=== PATIENT | female | born 1965 | race Caucasian/White ===

== ENCOUNTER 2016-08-15 09:49 | Emergency (ER) | payer BC ==
[2016-08-15] MEDS ORDERED: NS 0.9% 1000 ML* 1,000 ML IV ONE (10:21)
[2016-08-15] MEDS ORDERED: Ketorolac INJ* 30 MG/ML 1 ML VIAL IV ONE (10:21)
[2016-08-15] MEDS ORDERED: Metoclopramide IV* 5 MG/ML 2 ML VIAL IV ONE (10:21)
[2016-08-15] MEDS ORDERED: diPHENhydraMINE IV* 50 MG/ML 1 ml VIAL (BENADRYL) IV ONE (10:21)
[2016-08-15] MEDS ORDERED: Dihydroergotamine (D.H.E.)* 1 MG/ML 1 ML AMP IV ONE (10:21)
--- NOTE | 2016-08-15 10:21 | ED ---
Headache - HPI Summary HPI Summary: 50 female presents with complaints of a migraine that has been ongoing for 2 days. Patient has chronic migraines that she takes both prophylactic and rescue medications for. However after taking both she has not had any relief. Has not taken any today. States when this happens and her rescue medications do not help her she does have to come in and typically get IV medications for them to resolve. Patient is here visiting from [place] for a family reunion. She denies any other pain or complaints at this time. She has no PMHx. Tried taking topamax, half a percocet and trexamate x2 yesterday along with marijuana. Denies visual changes and aura. Describes migraine as unilateral right side and throbbing. Denies vomiting but admits to nausea. No recent head trauma or injury. States it is not the worst headache of her life and feels very typical for her. No changes in mental status. Noise and light make pain worse. Denies neck pain, fever and decreased LOC. Would like to break her migraine headache. - History Of Current Complaint Chief Complaint: EDHeadache Stated Complaint: MIGRAINE Time Seen by Provider: 08/15/16 10:12 Hx Obtained From: Patient, Family/Supervisor [employer]illing [employer] P[employer] - Onset/Duration: Sudden Onset, Started days ago - 1-2, Still Present Initially Headache Was: Initial Pain Scale(0-10)= - 6 Currently Pain Is: Current Pain Scale(0-10)= - 7 Timing: Constant Character: Throbbing, Migraine Location of Headache: Parietal - right side, Occipital - right side Aggravating Factor: Bright Lights - noise Allevating Factors: Nothing Associated Signs And Symptoms: Nausea - Allergies/Home Medications Allergies/Adverse Reactions: Allergies Allergy/AdvReac Type Severity Reaction Status Date / Time No Known Allergies Allergy Verified 08/15/16 09:55 PMH/Surg Hx/FS Hx/Imm Hx Respiratory History: Denies: Hx Asthma Neurological History: Reports: Hx Migraine Psychiatric History: Reports: Hx Depression - Surgical History Surgery Procedure, Year, and Place: left wrist ORIF - Immunization History Immunizations Up to Date: Yes Infectious Disease History: No Infectious Disease History: Denies: Traveled Outside the [place] in Last 30 Days - Family History Known Family History: Positive: None - Social History Alcohol Use: Occasionally Substance Use Type: Reports: Marijuana Smoking Status (MU): Never Smoked Tobacco Review of Systems Constitutional: Negative Positive: Photophobia ENT: Negative Cardiovascular: Negative Respiratory: Negative Positive: Nausea Skin: Negative Positive: Headache Psychological: Normal All Other Systems Reviewed And Are Negative: Yes Physical Exam Triage Information Reviewed: Yes Vital Signs On Initial Exam: Initial Vitals Temp Pulse Resp BP Pulse Ox 97.6 F 67 17 106/73 97 08/15/16 09:51 08/15/16 09:51 08/15/16 09:51 08/15/16 09:51 08/15/16 09:51 Vital Signs Reviewed: Yes Appearance: Positive: Well-Appearing, Well-Nourished, Pain Distress - mild wearing sunglasses, lights off Skin: Positive: Warm, Skin Color Reflects Adequate Perfusion, Dry. Negative: Numb, Cyanosis @ Head/Face: Positive: Normal Head/Face Inspection Eyes: Positive: Normal, EOMI, ANSHU, Conjunctiva Clear ENT: Positive: Normal ENT inspection, Hearing grossly normal, Pharynx normal, TMs normal Neck: Positive: Supple, Nontender, No Lymphadenopathy Respiratory/Lung Sounds: Positive: Clear to Auscultation, Breath Sounds Present. Negative: Rales, Rhonchi, Stridor, Wheezes Cardiovascular: Positive: Normal, RRR, Pulses are Symmetrical in both Upper and Lower Extremities. Negative: Murmur, Rub Abdomen Description: Positive: Nontender, Soft Bowel Sounds: Positive: Present Musculoskeletal: Positive: Normal, Strength/ROM Intact Neurological: Positive: Normal - neuro exam and mentation, Sensory/Motor Intact - sensation intact, Alert, Oriented to Person Place, Time, CN Intact II-III, Reflexes Intact, NV Bundle Intact Distally, Normal Gait, Finger to Nose - normal , Facial Symmetry, Speech Normal. Negative: Facial Droop Psychiatric: Positive: Affect/Mood Appropriate AVPU Assessment: Alert - Danyelle Coma Scale Best Eye Response: 4 - Spontaneous Best Motor Response: 6 - Obeys Commands Best Verbal Response: 5 - Oriented Diagnostics - Vital Signs Vital Signs Temp Pulse Resp BP Pulse Ox 08/15/16 09:53 97.3 F 67 17 106/73 97 08/15/16 09:51 97.6 F 17 / 97 - Laboratory Lab Statement: Any lab studies that have been ordered have been reviewed, and results considered in the medical decision making process. Re-Evaluation - Re-Evaluation First Eval Re-Evaluation Time: 11:30 Change: Improved - patient had relief after medications and fluids, ready to be d/c Headache Course/Dx - Course Course Of Treatment: patient was given pain medications that state have helped her in the past and had significant relief. migraine improved. fluids given. no concern for any atypical etiology or cause of headache. appears to be suffering from typical chronic migraine. no trauma or injury. Follow up with PCP. Continue migraine medications at home as directed. Continue wearing sunglasses, rest and fluids. Aware of worsening signs and symptoms. - Diagnoses Differential Diagnosis/HQI/PQRI: Migraine, Sinus Headache, Tension Headache Provider Diagnoses: Migraine headache Discharge - Discharge Plan Condition: Stable Disposition: HOME Patient Education Materials: Migraine Headache (ED) Referrals: Non Staff,Doctor [Primary Care Provider] - Additional Instructions: Take medications as prescribed for your migraine headache. Drink plenty of fluids, rest and continue to wear sunglasses. Follow up with PCP. IF symptoms persist, worsen or new symptoms develop please seek medical attention promptly.
[2016-08-15 11:59] VITALS: BP 119/67
== END 2016-08-15 11:59 | disposition home or self-care (01) ==
LOC: ED 09:49
DX: G43.909 Migraine, unspecified, not intractable, without status migrainosus (principal); R11.0 Nausea; F32.9 Major depressive disorder, single episode, unspecified
CPT/HCPCS: 96361; 96374; 96375; 96376; 99282; J1110; J1200; J1885